=== PATIENT | male | born 1990 | race Caucasian/White ===

== ENCOUNTER → 2016-05-14 | Outpatient (REF) ==
[~2016-05-14] MED LIST: NO HOME MEDICATIONS
== END ==
LOC: WSOH 09:05
DX: Z02.1 Encounter for pre-employment examination (principal)

== ENCOUNTER → 2016-05-18 | Outpatient (REF) | LOC: WSOH 13:34 → WSPT 14:30 | DX: Z00.00 Encounter for general adult medical examination without abnormal findings (principal) ==

== ENCOUNTER 2017-06-09 08:23 | Outpatient (RCR) | payer OTHER | END 2017-06-25 11:02 | disposition home or self-care (01) | LOC: WSOH 08:23 | DX: S86.311A Strain of muscle(s) and tendon(s) of peroneal muscle group at lower leg level, right leg, initial encounter (principal); W18.41XA Slipping, tripping and stumbling without falling due to stepping on object, initial encounter; Y99.0 Civilian activity done for income or pay ==